=== PATIENT | female | born 2000 | race Caucasian/White ===

== ENCOUNTER 2021-05-02 22:09 | Emergency (ER) | payer OTHER ==
[~2021-05-02] VITALS: Ht 160 cm; Wt 63.6 kg
[2021-05-02 23:53] VITALS: BP 103/69
== END 2021-05-03 01:30 | disposition left against medical advice (07) ==
LOC: EMS 22:11
DX: R07.9 Chest pain, unspecified (principal); Z53.21 Procedure and treatment not carried out due to patient leaving prior to being seen by health care provider